=== PATIENT | male | born 1940 | race Caucasian/White ===

== ENCOUNTER 2016-07-11 05:18 | Day surgery (SDC) | payer OTHER, BC ==
[~2016-07-11] VITALS: Ht 177.8 cm; Wt 99.8 kg
--- NOTE | ~2016-07-11 | O ---
[facility] [place] [address] OPERATIVE REPORT Name: TUNGCHANDAAracely QIU Room #: DEP [facility]..#: [id number] Admission: 07/11/16 Attend Phys: Xiang Brito MD Discharge: 07/11/16 Date of : 36 Report #: [id number] THIS REPORT FOR: //name// CC: Xiang Ch DO DATE OF SERVICE: 07/11/2016 PREOPERATIVE DIAGNOSIS: Hematuria secondary to bladder calculus. POSTOPERATIVE DIAGNOSIS: Hematuria secondary to bladder calculus. INDICATION FOR PROCEDURE: The patient is a 75-year-old gentleman who has a history of BPH with obstruction and is post transurethral resection of the prostate in 09/2014 and removal of a bladder calculus. The patient has recently been having irritative voiding symptoms and microscopic hematuria. Subsequently evaluated and noted to have a 1.7 x 1 cm bladder calculus. The patient is undergoing cystoscopy and laser cystolitholapaxy as definitive treatment. SUMMARY OF THE PROCEDURE AND FINDINGS: First, the patient is given a general anesthetic by laryngeal mask in the dorsal lithotomy position. He is prepped with Betadine and draped sterilely. One gram of Rocephin is given for antibiotic prophylaxis. Sequential compression devices are in place for prophylaxis against deep vein thrombosis. A 21-Palauan Wappler panendoscope is introduced in the bladder under direct vision. The anterior urethra is normal. Prostatic urethral reveals previous TUR defect with patency of the prostatic urethra. The bladder reveals a calculus present within the bladder. There is also a larger calculus that appears to actually be emanating from the left ureteral orifice. Subsequently, using a 1000-micron holmium laser fiber, the bladder stone is fragmented readily into multiple tiny pieces. Next, the stone within the ureteral orifice is fragmented enough to allow a grasping forceps to pull the stone free from the entrapment within the ureteral orifice. Completion of the laser lithotripsy is subsequently performed on the remaining stone fragments, which were evacuated from the bladder using a Joseph syringe. Once the bladder is cleared of all calculus debris, instrumentation is removed. The patient awakened from anesthesia and transferred to recovery room. The stone fragments are submitted for crystallographic analysis. No significant blood loss is appreciated during the procedure. No complications are noted. The patient is awakened from anesthesia and transferred to the recovery room, whereupon he arrives in satisfactory condition. <ELECTRONICALLY SIGNED> By: Xiang Brito MD 07/16/16 0820 [id number] Xiang Brito MD /nt
--- NOTE | ~2016-07-11 | H ---
[facility] [place] [address] HISTORY AND PHYSICAL Name: CHANDA RUBY Room #: 150-10 [facility]..#: [id number] Admission: 07/11/16 Attend Phys: Xiang Brito MD Discharge: Date of : 36 Report #: [id number] THIS REPORT FOR: //name// CC: Xiang Ch DO PREOPERATIVE DIAGNOSIS: Bladder calculus. HISTORY OF PRESENT ILLNESS: The patient is a 75-year-old male who has had a past history of BPH with obstruction. He is prostate resection in September 2014 and also at that time had bladder calculi, which were extracted. The patient recently has developed bladder spasms, intermittent urgency, and was noted to have microscopic hematuria. He was assessed with imaging, which confirms the presence of bladder calculus which is 1.7 x 1 cm in dimension. He therefore is undergoing cystoscopy with laser cystolitholapaxy. PAST MEDICAL HISTORY: Pertinent for hypertension, polycythemia, peripheral neuropathy, atrial fibrillation, deep vein thrombosis. PAST SURGICAL HISTORY: Includes tonsillectomy, lumbar laminectomy, pacemaker placement, transurethral resection of prostate. MEDICATIONS: His baseline medications include allopurinol 100 mg per day, gabapentin 100 mg daily, metformin 500 mg b.i.d., levothyroxine 100 mcg daily, metoprolol 100 mg b.i.d., digoxin 0.25 mg per day, warfarin 5 mg per day on hold, triamterene and hydrochlorothiazide 75/50 one-half tablet daily. FAMILY HISTORY: Pertinent for coronary artery disease. SOCIAL HISTORY: The patient does not use alcohol, tobacco products, or recreational drugs. PHYSICAL EXAMINATION: GENERAL: This patient is elderly, is in no acute distress. HEENT: Normocephalic, atraumatic. NECK: Supple, without lymphadenopathy. Thyroid is not palpable. LUNGS: Clear to auscultation. CARDIOVASCULAR: Regular rate and rhythm without murmur. ABDOMEN: Soft, without distention. GENITOURINARY: Penis without lesion. Testes unremarkable. RECTAL: Deferred. NEUROMUSCULAR: Exam is nonfocal. IMPRESSION: Bladder calculus with irritative voiding symptoms. PLAN: Cystoscopy with laser cystolitholapaxy. [address] [address] HISTORY AND PHYSICAL Name: CHANDA RUBY Room #: [address] [place] [address]..#: [id number] Admission: 07/11/16 Attend Phys: Xiang Brito MD Discharge: Date of : 36 Report #: [id number] DISCUSSION: I have discussed the procedure with attendant risk of infection and bleeding with the patient. He understands these issues and opts to proceed as directed. <ELECTRONICALLY SIGNED> By: Xiang Brito MD 07/11/16 1417 1748 1826 Xiang Brito MD /nt
--- NOTE | ~2016-07-11 | EKG ---
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 : 1940 Requested By: Xiang Brito Order Number: [id number] MD: Emigdio Corbin Measurements Intervals [place] Rate: 64 P: ID: QRS: -81 QRSD: 170 T: 95 QT: 443 QTc: 457 Interpretive Statements Afib/flutter and ventricular-paced rhythm No further analysis attempted due to paced rhythm No previous ECG available for comparison Electronically Signed On 07-11-2016 13:29:43 [employer] by Emigdio Corbin [email or web address] <ELECTRONICALLY SIGNED> By: Emigdio Corbin MD, [facility] 07/11/16 1329 1159 1159 Emigdio Corbin MD, FAC /EPI
[~2016-07-11 05:18] MED LIST: AUGMENTIN 875875 MG PO; COUMADIN; COUMADIN 2.5MG2.5 M1 PO; COUMADIN 5 MG TA5 M1 PO; COZAAR 25 MG TA25 M1 PO; COZAAR 25 MG TA25 M2 PO; CURCUMIN1 GM PO; DAILY VITE1 EACH PO; FISH OIL 1,001000 M2 PO; GABAPENTIN 100100 MG PO; HYZAAR 50-12.51 EACH PO; KEFLEX500 MG PO; LANOXIN 0.120.125 M1 PO; LANOXIN 0.250.25 M1 PO; LASIX 20 MG TAB20 MG PO; LECITHIN400 MG PO; LEVOTHYROXIN0.112 M1 PO; LEVOTHYROXINE 0.1 MG PO; LOPRESSOR50 PO; METFORMIN HCL500 MG PO; NORCO 5-325 TA1 EACH PO; NYSTATIN 1100000 U/M SWISH&SPIT; POTASSIUM20 PO; SPIRONOLACTONE25 M1 PO; VITAMINC500 PO; [UNRECOGNIZED DRUG - OTHER] PO
[2016-07-11 12:00] VITALS: BP 160/84
[2016-07-11 12:10] LABS: INR 1.4
[2016-07-11 12:16] LABS: CREATININE 1.2 mg/dL (0.6-1.3); POTASSIUM 4.4 mmol/L (3.5-5.1)
[2016-07-11 14:29] VITALS: BP 160/84
== END 2016-07-11 15:25 | disposition home or self-care (01) ==
LOC: OR 05:18 → TBA 05:18 → OR 10:30
PROVIDERS: Urology
DX: N21.0 Calculus in bladder (principal); I10 Essential (primary) hypertension; I48.91 Unspecified atrial fibrillation; E03.9 Hypothyroidism, unspecified; Z87.438 Personal history of other diseases of male genital organs; Z95.0 Presence of cardiac pacemaker; Z98.890 Other specified postprocedural states
CPT/HCPCS: 50010; 50101; 50478; 56815; 62110; 62900; 70005

== ENCOUNTER 2018-04-06 06:28 | Emergency (ER) | payer OTHER, BC ==
[~2018-04-06] VITALS: Ht 177.8 cm; Wt 95.3 kg
--- NOTE | ~2018-04-06 | EKG ---
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 RN : 1940 Requested By: Erika Guallpa Order Number: [id number] MD: Emigdio Corbin Measurements Intervals [place] Rate: 60 P: RI: QRS: -80 QRSD: 173 T: 87 QT: 465 QTc: 465 Interpretive Statements Afib/flutter and ventricular-paced rhythm No further analysis attempted due to paced rhythm Compared to ECG 07/11/2016 11:59:12 No significant changes Electronically Signed On 04-06-2018 11:34:42 CDT by Emigdio Corbin [email or web address] <ELECTRONICALLY SIGNED> By: Emigdio Corbin MD, [facility] 04/06/18 1134 9 9 Emigdio Corbin MD, [facility] /EPI
[~2018-04-06 06:28] MED LIST changes: +PREDNISONE 20 M20 MG PO
[2018-04-06 07:52] LABS: MCH 20.5 pg (26.0-34.0); MCHC 31.8 g/dL (28.0-37.0); MCV 64.3 fL (80.0-100.0); PLATELET COUNT 145 thou/uL (150-400); RDW 21.1 % (10.5-14.5); WBC 10.6 thou/uL (4.0-11.0)
[2018-04-06 07:55] LABS: RBC 7.31 mil/uL (4.50-6.00)
[2018-04-06 08:02] LABS: ANION GAP 7 mmol/L (7-16); BUN 21 mg/dL (7-18); CALCIUM 9.3 mg/dL (8.5-10.1); CHLORIDE 100 mmol/L (98-107); CO2 28 mmol/L (21-32); CREATININE 1.2 mg/dL (0.7-1.3); GLUCOSE 197 mg/dL (74-106); POTASSIUM 4.1 mmol/L (3.5-5.1); SODIUM 135 mmol/L (136-145)
[2018-04-06 08:11] LABS: TROPONIN-I <0.06 ng/mL (<0.06)
[2018-04-06 08:43] LABS: ABSOLUTE NEUTROPHILS 8.4 thou/uL (1.4-8.2)
[2018-04-06 08:44] LABS: ANISOCYTOSIS 2+; MICROCYTES 1+; OVALOCYTES 1+
== END 2018-04-06 09:30 | disposition home or self-care (01) ==
LOC: ER 06:28
PROVIDERS: Emergency Medicine
DX: R20.2 Paresthesia of skin (principal); I48.91 Unspecified atrial fibrillation; I10 Essential (primary) hypertension; E03.9 Hypothyroidism, unspecified; E11.9 Type 2 diabetes mellitus without complications; Z95.0 Presence of cardiac pacemaker